=== PATIENT | female | born 1965 | race Caucasian/White ===

== ENCOUNTER 2017-12-26 06:35 | Day surgery (SDC) ==
[2015-02-16 13:40] VITALS: BMI 30.2
[2017-12-26 07:32] VITALS: TEMP 97.8
[2017-12-26] MEDS ORDERED: LIDOCAINE 1% 20 ML MDV ID STA (07:33)
[2017-12-26] MEDS ORDERED: DIPRIVAN 20 ML VIAL IVP ONE (08:25)
[2017-12-26] MEDS ORDERED: VERSED ONE (08:25)
[2017-12-26 09:34] VITALS: BP 136/76
--- NOTE | 2017-12-27 09:44 | OP ---
PROCEDURE: COLONOSCOPY TO THE CECUM. ENDOSCOPIST: Ge BERMUDEZ M.D. INDICATION: SCREENING; LAST COLONOSCOPY GREATER THAN 5 YEARS AGO. INSTRUMENT: [employer]-190. MEDICATION: PER ANESTHESIA. PROCEDURE: The patient was positioned for colonoscopy. The digital rectal exam was negative. The colonoscope was inserted through the anus and advanced to the cecum. The prep was of good quality throughout. The [place] Bowel Preparation Score was 9. The exam was normal throughout. The retroflex exam was normal. The patient tolerated the procedure without immediate complication. Withdrawal time 8 minutes and 12 seconds. PLAN: 1. Repeat colonoscopy in 10 years for screening, sooner if symptoms warrant or new family history is documented. CC: DR. JAIDA PIÑA
== END 2017-12-26 09:15 | disposition home or self-care (01) ==
LOC: SURG 06:35
PROVIDERS: ATTEND Internal Medicine Gastroenterology
DX: Z12.11 Encounter for screening for malignant neoplasm of colon (principal)